=== PATIENT | male | born 1955 | race Hispanic/Latino ===

== ENCOUNTER 2017-08-18 00:14 | Emergency (ER) | payer SELFPAY ==
[2017-08-18] MEDS ORDERED: PROMETHAZINE HCL INJ 12.5 MG in SODIUM CHLORIDE 0.9% 50ML 50 ML IVPB ONE (00:30)
[2017-08-18] MEDS ORDERED: SODIUM CHLORIDE 0.9% 1000ML 1,000 ML IVS ONE (00:30)
[2017-08-18] MEDS ORDERED: PROMETHAZINE HCL INJ 25 MG/ML VIAL ONE (00:47)
[2017-08-18] MEDS ORDERED: SODIUM CHLORIDE 0.9% 50ML 50 ML ONE (00:47)
--- NOTE | 2017-08-18 01:06 | RAD ---
EXAM DESCRIPTION: Abdomen Series CLINICAL HISTORY: right sided abd pain 6 hours COMPARISON: 10/26/2015 FINDINGS: Single view of the chest with upright and spine views of the abdomen. Tortuosity of thoracic aorta. Cardiomegaly. No consolidation, pneumothorax, or pleural effusion. No free intraperitoneal air. Paucity of bowel gas throughout the abdomen. Degenerative change of the spine. No air-fluid levels identified. No definite abnormal calcifications identified. IMPRESSION: 1. No acute pulmonary process. 2. Cardiomegaly. 3. Nonspecific bowel gas pattern. Electronically signed by: Jonatan Plascencia 08/18/2017 1:06 AM [facility]
--- NOTE | 2017-08-18 02:29 | CT ---
EXAM DESCRIPTION: CT ABDOMEN AND PELVIS WITH CONTRAST CLINICAL HISTORY: rigth sided abd pain 8 hours COMPARISON: None Available. TECHNIQUE: CT of the abdomen and pelvis are performed during IV bolus administration of iodinated contrast DLP: 1474 mGycm FINDINGS: Abdomen: The liver has normal size and density. No intrahepatic mass or biliary dilatation. No calcified gallstones. Punctate calcified granuloma right hepatic lobe. The spleen, pancreas, and adrenal glands are unremarkable. The kidneys have normal size and contour without evidence of solid mass or hydronephrosis. The aorta and IVC have normal caliber and position. The portal vein patent. The proximal visceral and renal arteries are patent. No free intraperitoneal air. The stomach and duodenum have normal course. Pelvis: Benign coarse calcifications of the prostate. Prostate is not enlarged. The urinary bladder is decompressed with mild wall thickening. No free pelvic fluid or lymphadenopathy. Scattered diverticula of the colon without pericolic fat stranding. Normal appendix. The visualized lung bases demonstrate minimal dependent atelectasis.. No destructive bone lesions identified. Degenerative change of the spine. IMPRESSION: 1. No acute inflammatory or obstructive abnormality identified. 2. Diverticulosis without evidence of diverticulitis. 3. Mild wall thickening of the urinary bladder may be related to under distention however cystitis other etiology are considerations. Correlation with urinalysis recommended. This exam was performed according to our departmental dose-optimization program, which includes automated exposure control, adjustment of the mA and/or kV according to patient size and/or use of iterative reconstruction technique. Electronically signed by: Jonatan Plascencia 08/18/2017 2:28 AM [facility]
[2017-08-18] MEDS ORDERED: metroNIDAZOLE IV PREMIX 500MG 500 MG in PREMIX BAG 1 BAG IVPB ONE (02:53)
[2017-08-18] MEDS ORDERED: CIPROFLOXACIN 500 MG TAB PO ONE (02:53)
[2017-08-18] MEDS ORDERED: SUCRALFATE 1 GM/10 ML 1 GM UD PO ONE (02:53)
[2017-08-18] MEDS ORDERED: PANTOPRAZOLE SODIUM IV 40 MG VIAL IV ONE (02:53)
[2017-08-18] MEDS ORDERED: metroNIDAZOLE IV PREMIX 500MG 100 ML IVPB ONE (02:58)
--- NOTE | 2017-08-18 03:12 | ED.PDOC ---
History of Present Illness - General Chief Complaint: Abdominal Pain Stated Complaint: ride sided pain Time Seen by Provider: 08/18/17 00:19 Source: patient, family Exam Limitations: language barrier - he patient's is fluent in [place] and [place] and helps to translate. - History of Present Illness Initial Comments: he patient is a 62-year-old man presenting to the emergency room secondary to primarily right sided abdominal pain and intermittent nausea and vomiting for the last 6-8 hours. No back pain. No urinary symptoms. No fevers. He has been having bowel movements but no diarrhea or constipation. He has not been having any heartburn issues. No sore throat. No chest pain. No syncope or near syncope. He did receive some Zofran and morphine from EMS prior to arrival. The patient has largely been healthy with the exception of diverticulitis and a diverticular abscess formation approximately 2 years ago. He has not had any history of pancreatitis. He has not had any recent trauma. He denies any history of heart problems.e denies blood or bile in the vomitus. Severity: moderate Improving Factors: medication Worsening Factors: nothing Associated Symptoms: loss of appetite, malaise, nausea/vomiting Allergies/Adverse Reactions: Allergies NO KNOWN ALLERGY Allergy (Verified 08/18/17 00:32) Home Medications: Ambulatory Orders Ciprofloxacin [Cipro] 500 mg PO BID #14 tab 08/18/17 Famotidine [Pepcid Tab] 20 mg PO BID #60 tab 08/18/17 Metronidazole 500 mg PO TID #20 tab 08/18/17 Ondansetron [Zofran Odt] 4 mg PO Q4H PRN #10 tab 08/18/17 Sucralfate Tab [Carafate Tab] 1 gm PO QID #60 tab 08/18/17 Review of Systems - Review of Systems Constitutional: States: malaise EENTM: States: no symptoms reported Respiratory: States: no symptoms reported Cardiology: States: no symptoms reported Gastrointestinal/Abdominal: States: abdominal pain, nausea, vomiting. Denies: constipation, diarrhea Genitourinary: States: no symptoms reported Musculoskeletal: States: no symptoms reported Skin: States: no symptoms reported Neurological: States: no symptoms reported Endocrine: States: no symptoms reported All other Systems: No Change from Baseline Past Medical History (General) - Patient Medical History Hx Seizures: No Hx Stroke: No Hx Dementia: No Hx Asthma: No Hx of COPD: No Hx Cardiac Disorders: No Hx Congestive Heart Failure: No Hx Pacemaker: No Hx Hypertension: No Hx Thyroid Disease: No Hx Diabetes: No Hx Gastroesophageal Reflux: No Hx Renal Disease: No Hx Cancer: No Hx of HIV: No Hx Hepatitis C: No Hx MRSA: No - Vaccination History Hx Tetanus, Diphtheria Vaccination: Yes Hx Influenza Vaccination: Yes Hx Pneumococcal Vaccination: No - Social History Hx Tobacco Use: No Hx Alcohol Use: Yes - 3/day Hx Substance Use: No Hx Substance Use Treatment: No Hx Depression: No Family Medical History - Family History Father Living Status: Hx Family;Other: Kidney illness Physical Exam - Physical Exam General Appearance: Alert, Obvious distress Eye Exam: bilateral normal Ears, Nose, Throat: hearing grossly normal, normal ENT inspection Neck: full range of motion, supple Respiratory: lungs clear, normal breath sounds, no respiratory distress, no accessory muscle use Cardiovascular/Chest: normal peripheral pulses, regular rate, rhythm, no edema Peripheral Pulses: radial,right: 2+, radial,left: 2+, dorsalis pedis,right: 2+, dorsalis pedis,left: 2+ Gastrointestinal/Abdominal: soft, other - the patient has moderate discomfort to palpation along the right side of the abdomen. No definite palpable mass. It does not localize to the upper or lower abdomen. Rectal Exam: deferred Back Exam: normal inspection, no CVA tenderness, no vertebral tenderness Extremity: normal range of motion, non-tender, normal inspection, no pedal edema , normal capillary refill Neurologic: deputy head II-XII nml as tested, alert, normal mood/affect, oriented x 3 Skin Exam: normal color Comments: Vital Signs - 24 hr 08/18/17 08/18/17 08/18/17 00:23 01:18 02:44 Temperature 98.9 F Pulse Rate [ 68 64 76 left] Respiratory 18 18 15 Rate Blood Pressure 143/83 123/74 137/93 [left] O2 Sat by Pulse 92 L 93 L 97 Oximetry Progress - Progress Progress: 08/18/17 03:15 the patient is a 62-year-old male presenting to the emergency room secondary to nausea with vomiting and right-sided abdominal pain for the last 6- 8 hours. Laboratory work shows a mild leukocytosis at 13,000. He has a mild lactic acidosis which is consistent with his vomiting. The patient was rehydrated with IV fluids. CT scan did not show any evidence of cholecystitis, bowel obstruction, appendicitis, or abscess formation. No evidence of volvulus or intussusception. No evidence on CT scan of any bowel ischemia. Definitive source of this is not known however most likely causes are gastritis and duodenitis versus an ascending colitis and early diverticulitis. To that end, the patient is going to be placed on metronidazole and ciprofloxacin for the next 7 days. He is additionally going to be placed on Carafate for the next 2 weeks and Pepcid for the next month. He will also be written for Zofran for as needed use for nausea and vomiting control. He needs to keep himself well- hydrated. He needs to maintain a bland diet. He is to take no alcohol while taking the antibiotics. He should follow up with his primary care doctor later this week before the weekend. ER warnings were given for any worsening. - Results/Orders Results/Orders: Vital Signs - 24 hr 08/18/17 08/18/17 08/18/17 00:23 01:18 02:44 Temperature 98.9 F Pulse Rate [ 68 64 76 left] Respiratory 18 18 15 Rate Blood Pressure 143/83 123/74 137/93 [left] O2 Sat by Pulse 92 L 93 L 97 Oximetry Laboratory Tests 08/18/17 08/18/17 08/18/17 00:30 00:31 00:31 WBC 13.1 H RBC 5.06 Hgb 16.1 Hct 48.0 MCV 95.0 H MCH 31.8 H MCHC 33.4 RDW 12.5 Plt Count 241 MPV 9.2 Absolute Neuts (auto) 10.10 H Absolute Lymphs (auto) 1.80 Absolute Monos (auto) 0.90 H Absolute Eos (auto) 0.20 Absolute Basos (auto) 0.00 Neutrophils % 77.3 Lymphocytes % 13.9 L Monocytes % 7.2 Eosinophils % 1.3 Basophils % 0.3 PT 11.1 INR 0.980 PTT (SP) 25.5 D-Dimer, Quantitative < 230 Sodium 134 L Potassium 3.3 L Chloride 98 L Carbon Dioxide 23 Anion Gap 16.3 BUN 11 Creatinine 0.64 BUN/Creatinine Ratio 17.2 Random Glucose 149 H Serum Osmolality 270.4 L Lactic Acid Calcium 8.4 Total Bilirubin 0.4 AST 26 ALT 22 Alkaline Phosphatase 68 Creatine Kinase 104 CK-MB (CK-2) 1.3 CK-MB (CK-2) % Not Reportable Troponin I < 0.02 B-Natriuretic Peptide 11.5 Serum Total Protein 7.5 Albumin 4.0 Globulin 3.5 Albumin/Globulin Ratio 1.1 Amylase 74 Lipase 23 Urine Color Urine Appearance Urine pH Ur Specific [place] Urine Protein Urine Glucose (UA) Urine Ketones Urine Blood Urine Nitrite Urine Bilirubin Urine Urobilinogen Ur Leukocyte Esterase Urine RBC Urine WBC Ur Epithelial Cells Urine Bacteria 08/18/17 08/18/17 01:10 01:34 WBC RBC Hgb Hct MCV MCH MCHC RDW Plt Count MPV Absolute Neuts (auto) Absolute Lymphs (auto) Absolute Monos (auto) Absolute Eos (auto) Absolute Basos (auto) Neutrophils % Lymphocytes % Monocytes % Eosinophils % Basophils % PT INR PTT (SP) D-Dimer, Quantitative Sodium Potassium Chloride Carbon Dioxide Anion Gap BUN Creatinine BUN/Creatinine Ratio Random Glucose Serum Osmolality Lactic Acid 2.4 H* Calcium Total Bilirubin AST ALT Alkaline Phosphatase Creatine Kinase CK-MB (CK-2) CK-MB (CK-2) % Troponin I B-Natriuretic Peptide Serum Total Protein Albumin Globulin Albumin/Globulin Ratio Amylase Lipase Urine Color Yellow Urine Appearance Clear Urine pH 6.0 Ur Specific [place] 1.025 Urine Protein Negative Urine Glucose (UA) Negative Urine Ketones 15 H Urine Blood Negative Urine Nitrite Negative Urine Bilirubin Negative Urine Urobilinogen 0.2 Ur Leukocyte Esterase Negative Urine RBC 0-1 Urine WBC 0 Ur Epithelial Cells 0 Urine Bacteria Rare acute abdominal series shows no acute pathology. CT scan of abdomen and pelvis shows no evidence of any active diverticulitis. No abscess formation. No obstruction. No free air. No evidence of any hemorrhage. No evidence of any pulmonary infiltrates at the bases of the lungs. Departure - Departure Clinical Impression: Abdominal pain Qualifiers: Abdominal location: unspecified location Qualified Code(s): R10.9 - Unspecified abdominal pain Nausea and vomiting Qualifiers: Vomiting type: unspecified Vomiting Intractability: non-intractable Qualified Code(s): R11.2 - Nausea with vomiting, unspecified Disposition: Discharge to Home or Self Care Condition: Fair Departure Forms: ED Discharge - Pt. Copy, Patient Portal Self Enrollment Instructions: DI for Abdominal Pain-Adult Diet: bland diet Activity: increase activity as tolerated Prescriptions: Ciprofloxacin [Cipro] 500 mg PO BID #14 tab Famotidine [Pepcid Tab] 20 mg PO BID #60 tab Metronidazole 500 mg PO TID #20 tab Ondansetron [Zofran Odt] 4 mg PO Q4H PRN #10 tab PRN Reason: Vomiting Sucralfate Tab [Carafate Tab] 1 gm PO QID #60 tab Home Medications: Ambulatory Orders Ciprofloxacin [Cipro] 500 mg PO BID #14 tab 08/18/17 Famotidine [Pepcid Tab] 20 mg PO BID #60 tab 08/18/17 Metronidazole 500 mg PO TID #20 tab 08/18/17 Ondansetron [Zofran Odt] 4 mg PO Q4H PRN #10 tab 08/18/17 Sucralfate Tab [Carafate Tab] 1 gm PO QID #60 tab 08/18/17 Additional Instructions: the patient is a 62-year-old male presenting to the emergency room secondary to nausea with vomiting and right-sided abdominal pain for the last 6- 8 hours. Laboratory work shows a mild leukocytosis at 13,000. He has a mild lactic acidosis which is consistent with his vomiting. The patient was rehydrated with IV fluids. CT scan did not show any evidence of cholecystitis, bowel obstruction, appendicitis, or abscess formation. No evidence of volvulus or intussusception. No evidence on CT scan of any bowel ischemia. Definitive source of this is not known however most likely causes are gastritis and duodenitis versus an ascending colitis and early diverticulitis. To that end, the patient is going to be placed on metronidazole and ciprofloxacin for the next 7 days. He is additionally going to be placed on Carafate for the next 2 weeks and Pepcid for the next month. He will also be written for Zofran for as needed use for nausea and vomiting control. He needs to keep himself well- hydrated. He needs to maintain a bland diet. He is to take no alcohol while taking the antibiotics. He should follow up with his primary care doctor later this week before the weekend. ER warnings were given for any worsening. endoscopy may prove beneficial on this patient in the future.
[2017-08-18 04:27] VITALS: BP 132/78; TEMP 98.8; O2SAT 94
== END 2017-08-18 04:27 | disposition home or self-care (01) ==
LOC: ER 00:14
DX: R10.9 Unspecified abdominal pain (principal); R11.2 Nausea with vomiting, unspecified
CPT/HCPCS: 36415; 74019; 74177; 80053; 81001; 82150; 82550; 82553; 83605; 83690; 83880; 84484; 85025; 85379; 85610; 85730; 87040; A4216; J2550; J3490; J7030